=== PATIENT | female | born 1985 | race Caucasian/White ===

== ENCOUNTER 2024-09-30 21:58 | Emergency (ER) | payer OTHER, SELFPAY ==
--- OUTSIDE RECORDS SUMMARY | 2023-04-22 09:30 | XMS_ITS ---
Author Organization [facility] vices Address [address] [place] [id number] Care Team Providers Care [place] Name Role Phone Theodora Keys Unavailable [phone] REASON FOR VISIT Comp. Exam Social History Sex Assigned At : Social History Observation Description Sex Assigned At Female Encounters Encounter Location Date Provider Diagnosis [facility] [address] [place], [place] [id number] 04/22/2023 Theodora Keys Plan Of Treatment No Information Progress Notes * Farida THAPA MDOB:1985 (39 yo F)Acc No.[id number]:04/22/2023 Patient: Lilian Farida PEREZ Provider: Adrian Keys DDS :1985 A ge:37 Y S ex:Female Date:04/22/2023 Address:[address] [place], [place] [id number] Subjective: * Chief Complaints: * 1 . Comp. Exam. * Medical History: Objective: * Vitals: Assessment: Plan: * Treatment: * Billing Information: * Visit Code: * Procedure Codes: * Electronic signature of Anastacio Keys DDS on 09/30/2024 at 10:06 PM EDT Sign off status: Pending * Provider: Adrian Keys DDS Date: 1 Generated for Printi ng/Faxing/eTransmitting on: 0 09/30/2024 10:06 PM EDT
--- OUTSIDE RECORDS SUMMARY | 2024-09-30 21:26 | XMS_ITS | Encounter Summary ---
Author Organization [employer] tem Address [facility] [place]-[id number] [address] [place] [address] Care Team Providers Care Relish Maker Name Role Phone Laura Pruitt Abdiel CARROLLN-OYSTER BED WORKER Primary Care Provider + Encounter Details Date Type Department Care Team (Late st Contact Info) Description 09/30/2024 9:26 PM EDT Emergency [facility] - Emergency [address] [place] [id number] Social History Tobacco Use Types Packs/Day Years Used Date Smoking Tobacco: Never Smokeless Tobacco: Never Alcohol Use Standard Drinks/Week Comments Yes 0 (1 standard drink = 0.6 oz pur e alcohol) occasionally PHQ-2 Answer Date Recorded Total Score 0 06/28/2024 Childcare Answer Date Recorded Childcare Unknown 10/04/2018 Employment Answer Date Recorded Employment Unknown 10/04/2018 Hunger Screening Answer Date Recorded Within the past 12 months we worried whether our food would run out before we got money to buy more. Never True 06/28/2024 Within the past 12 months th e food we bought just didn't last and we didn't have money to get more. Never True 06/28/2024 Purpose - Life Answer Date Recorded Purpose and direction in life Unknown Comments No Sex and Gender Information Value Date Recorded Sex Assigned at Not on file Legal Sex Female 11:33 AM EDT Gender Identity Not on file Sexual Orientation Not on file documented as of this encounter Plan of Treatment Not on file documented as of this encounter Visit Diagnoses Not on filedocumented in this encounter Additional Health Concerns Assessment Noted Time PHQ-9 Depression Total Score: 0 06/29/19 25 1:40 PM EST documented as of this encounter Care Teams Relish Maker Relationship Specialty Start Date End Date Laura Pruitt, MANAGER ADMINISTRATION-OYSTER BED WORKER [address] [place] [address] PCP - General Internal Medicine 03/10/24 documented as of this encounter
[2024-09-30 22:03] VITALS: BP 149/82; PULSE 82; TEMP 36.6; O2SAT 98; BMI 95.7
--- OUTSIDE RECORDS SUMMARY | 2024-09-30 22:06 | XMS_ITS | Clinical Summary ---
Author Organization [facility] Address [address] [place] [address] Care Team Providers Care Mining Machinery Assembler Name Role Phone Pratik Gan DO Primary Care Provider [phone] Allergies Active Allergy Reactions Criticality Noted Date Comments Codeine 01/20/2013 Medications No known medications Social History Tobacco Use Types Packs/Day Years Used Date Smoking Tobacco: Never Alcohol Use Standard Drinks/Week Comments No 0 (1 standard drink = 0.6 oz pur e alcohol) Comments Unknown Sex and Gender Information Value Date Recorded Sex Assigned at Not on file Legal Sex Female 6:39 PM EST Gender Identity Not on file Sexual Orientation Not on file Last Filed Vital Signs Vital Sign Reading Time Taken Comments Blood Pressure 108/59 01/20/2013 9:23 PM EDT Pulse 99 01/20/2013 8:43 PM EDT Temperature 36.6 C (97.8 F) 01/20/2013 8:35 PM EDT Respiratory Rate 15 01/20/2013 8:35 PM EDT Oxygen Saturation 99% 01/20/2013 9:02 PM EDT Inhaled Oxygen Concentration - - Weight 83.9 kg (185 lb) 01/20/2013 8:35 PM EDT Height 160 cm (5' 3 ) 01/20/2013 8:35 PM EDT Body Mass Index 32.77 01/20/2013 8:35 PM EDT Plan of Treatment Not on file Care Teams Mining Machinery Assembler Relationship Specialty Start Date End Date Pratik Gan DO [address] [place], [place] [id number] PCP - General 01/20/13
--- OUTSIDE RECORDS SUMMARY | 2024-09-30 22:06 | XMS_ITS | Clinical Summary ---
Author Organization [facility] Address [address] [place] [address] Care Team Providers Care Rolling Mill Operator Helper Name Role Phone Unavailable Primary Care Provider Unavailabl e Allergies Active Allergy Reactions Criticality Noted Date Comments Codeine Unknown 02/03/2023 Social History Tobacco Use Types Packs/Day Years Used Date Smoking Tobacco: Never Assessed Comments Unknown Sex and Gender Information Value Date Recorded Sex Assigned at Not on file Legal Sex Female 6:43 PM EDT Gender Identity Not on file Sexual Orientation Not on file Last Filed Vital Signs Vital Sign Reading Time Taken Comments Blood Pressure 130/80 05/27/2022 12:00 PM EST Pulse - - Temperature - - Respiratory Rate - - Oxygen Saturation - - Inhaled Oxygen Concentration - - Weight 108 kg (237 lb) 05/27/2022 12:00 PM EST Height 160 cm (5' 3 ) 05/27/2022 12:00 PM EST Body Mass Index 41.98 05/27/2022 12:00 PM EST Plan of Treatment Not on file
--- OUTSIDE RECORDS SUMMARY | 2024-09-30 22:06 | XMS_ITS | Clinical Summary ---
Author Organization [employer] tem Address [facility]-[id number] [address] [place] [address] Care Team Providers Care Utility Aircrewman Name Role Phone Laura Pruitt Abdiel HIM CLERK-SECURITIES AND REAL ESTATE DIRECTOR Primary Care Provider + Allergies Active Allergy Reactions Criticality Noted Date Comments Codeine Rash Low 12/06/2018 Medications diclofenac sodium (VOLTAREN) 1 % gel Apply 2 g topically in the morning and 2 g at noon and 2 g in the evening and 2 g before bedtime. 100 g 4 Active Additional Information Patient not taking.Reported on 06/28/2024 ibuprofen (MOTRIN) 600 mg tablet Take 1 tablet (600 mg total) by mouth every 6 (six) hours as needed for pain. 30 tablet 4 Active acetaminophen (TYLENOL EXTRA STRENGTH) 500 mg tablet Take 1 tablet (500 mg total) by mouth every 6 (six) hours as needed for pain. 30 tablet 4 Active Active Problems Problem Noted Date Diagnosed Date Tension headache 11/12/2022 Anxiety 11/12/2022 Gastroesophageal reflux dise ase with esophagitis without hemorrhage 02/05/2022 Chronic erosive gastritis 02/05/2022 Bile reflux gastritis 02/05/2022 Duodenitis 02/05/2022 Recurrent biliary colic 01/28/2022 Overview (01/28/2022): Added automatically from request for surgery [id number] Chronic cholecystitis with calculus 01/28/2022 Overview (01/28/2022): Added automatically from request for surgery [id number] Epigastric pain 01/26/2022 Overview (01/26/2022): Added automatically from request for surgery [id number] RUQ pain 01/26/2022 Overview (01/26/2022): Added automatically from request for surgery [id number] Class 3 severe obesity due t o excess calories without serious comorbidity with body mass index (BMI) of 40.0 to 44.9 in adult 01/25/2022 Encounters Date Type Department Care Team Description 09/30/2024 9:26 PM EDT Emergency [facility] - Emergency [address] [place] [address] from Last 3 Months Immunizations Immunization Administration Dates Next Due MMR 08/21/1999 Family History Medical History Relation Name Comments Hypertension Father Diabetes Mother Leukemia Mother CML Relation Name Status Comments Father Alive Mother Alive Social History Tobacco Use Types Packs/Day Years Used Date Smoking Tobacco: Never Smokeless Tobacco: Never Tobacco Cessation:Counseling Given: Not Answered Alcohol Use Standard Drinks/Week Comments Yes 0 [...] Sign Reading Time Taken Comments Blood Pressure 110/76 06/28/2024 1:41 PM EST Pulse 87 06/28/2024 1:41 PM EST Temperature 36.8 C (98.2 F) 06/28/2024 1:41 PM EST Respiratory Rate 18 06/28/2024 1:41 PM EST Oxygen Saturation 99% 06/28/2024 1:41 PM EST Inhaled Oxygen Concentration - - Weight 116.1 kg (256 lb) 06/28/2024 1:41 PM EST Height 160 cm (5' 3 ) 06/28/2024 1:41 PM EST Body Mass Index 45.35 06/28/2024 1:41 PM EST Plan of Treatment Health Maintenance Due Date Last Done Comments Adult BMI Follow Up Plan 2004 Adult BMI Screening 06/28/2025 06/28/2024 DTaP,Tdap and Td Vaccines (1 - Tdap) 06/28/2025 Postponed from 05/11 (Patient Refused) Depression Screening 06/28/2025 06/28/2024 Tobacco Screening 06/28/2025 06/28/2024 Influenza Vaccine Discontinued Medical Devices Not on file Insurance [place] [employer] Care Teams Utility Aircrewman Relationship Specialty Start Date End Date Laura Pruitt APRN-SAIGE [address] [place] [address] PCP - General Internal Medicine 03/10/24
--- OUTSIDE RECORDS SUMMARY | 2024-09-30 22:06 | XMS_ITS | Encounter Summary ---
Author Organization [facility] tem Address [facility]-[id number] [address] [place] [address] Care Team Providers Care Child Care Attendant School Name Role Phone Laura Pruitt APRN-DESIGNER WRITER Primary Care Provider + Encounter Details Date Type Department Care Team (Late st Contact Info) Description 11/09/2022 Telephone [facility] Physicians Internal Medicine - Family Medicine [address] [place] [address] Laura Pruitt APRNDESIGNER WRITER [address] [place] [address] Social History Tobacco Use Types Packs/Day Years Used Date Smoking Tobacco: Never Smokeless Tobacco: Never Alcohol Use Standard Drinks/Week Comments Yes 0 (1 standard drink = 0.6 oz pur e alcohol) occasionally PHQ-2 Answer Date Recorded Total Score 0 11/12/2022 Childcare Answer Date Recorded Childcare Unknown 10/04/2018 Employment Answer Date Recorded Employment Unknown 10/04/2018 Purpose - Life Answer Date Recorded Purpose and direction in life Unknown Comments No Sex and Gender Information Value Date Recorded Sex Assigned at Not on file Legal Sex Female 11:33 AM EDT Gender Identity Not on file Sexual Orientation Not on file documented as of this encounter Miscellaneous Notes * Telephone Encounter - Rebeca Baker - 11/09/2022 10:54 AM EDT Pt called her ins and all 3 weight loss medications are covered with a Prior Auth * Telephone Encounter - PATT Vegas - 11/09/2022 10:54 AM EDT Great! Looks like she has f/u on the to discuss but she may move up to sooner if wishes. I candiscuss them in more detail and we can do injection teaching if needed. documented in this encounter Plan of Treatment Not on file documented as of this encounter Visit Diagnoses Not on filedocumented in this encounter Additional Health Concerns Infection Onset Date Last Indicated Resolved Time COVID-19 Rule-Out 08/14/2023 08/14/2023 08/14/2023 11:38 AM EDT Assessment Noted Time PHQ-9 Depression Total Score: 0 11/05/19 23 2:17 PM EDT documented as of this encounter Care Teams Child Care Attendant School Relationship Specialty Start Date End Date Laura Pruitt APRN-CNP [address] [place] [address] PCP - General Internal Medicine 03/10/24 documented as of this encounter
--- OUTSIDE RECORDS SUMMARY | 2024-09-30 22:06 | XMS_ITS | Encounter Summary ---
Author Organization [facility] tem Address [id number] [address] [place] [address] Care Team Providers Care Bowling Or Skating Front Desk Clerk Name Role Phone Laura Pruitt Abdiel CARROLLN-INTERNIST Primary Care Provider + Encounter Details Date Type Department Care Team (Late st Contact Info) Description [facility] [address] [place] [phone] Haylee Ureña CMA Social History Tobacco Use Types Packs/Day Years [...] encounter Miscellaneous Notes * Telephone Encounter - Haylee Ureña CMA - 11/16/2022 4:56 PM EDT Carol from [facility] called to let us know that patient declined services. She told them she was seeing someone in [place] for this and I am guessing it is you she is talking about. documented in this encounter Plan of Treatment Not on file documented as of this encounter Visit Diagnoses Not on filedocumented in this encounter Additional Health Concerns Infection Onset Date Last Indicated Resolved Time COVID-19 Rule-Out 08/14/2023 08/14/2023 08/14/2023 11:38 AM EDT Assessment Noted Time PHQ-9 Depression Total Score: 0 11/13/19 23 8:32 AM EDT documented as of this encounter Care Teams Bowling Or Skating Front Desk Clerk Relationship Specialty Start Date End Date Laura Pruitt, JANITOR CARETAKER-INTERNIST [address] [place] [address] PCP - General Internal Medicine 03/10/24 documented as of this encounter
--- OUTSIDE RECORDS SUMMARY | 2024-09-30 22:06 | XMS_ITS | Encounter Summary ---
Author Organization [facility] Address [id number] [address] [place] [address] Care Team Providers Care Director Radio Name Role Phone Laura Pruitt TREADLE CUT OFF SAW OPERATOR-JOB SPECIFICATION WRITER Primary Care Provider + Reason for Visit * Reason Comments Med Refill Encounter Details Date Type Department Care Team (Late st Contact Info) Description 06/02/2023 Refill [facility] Internal Medicine - Family Medicine [address] [place] [address] Laura Pruitt, TREADLE CUT OFF SAW OPERATORNEW [facility] [address] [facility] [address] [place] [address] Social History Tobacco Use Types Packs/Day Years Used Date Smoking Tobacco: Never Smokeless Tobacco: Never Alcohol Use Standard Drinks/Week Comments Yes 0 (1 standard drink = 0.6 oz pur e alcohol) occasionally PHQ-2 Answer Date Recorded Total Score 0 05/05/2023 Childcare Answer Date Recorded Childcare Unknown 10/04/2018 Employment Answer Date Recorded Employment Unknown 10/04/2018 Hunger Screening Answer Date Recorded Within the past 12 months we worried whether our food would run out before we got money to buy more. Never True 05/05/2023 Within the past 12 months th e food we bought just didn't last and we didn't have money to get more. Never True 05/05/2023 Purpose - Life Answer Date Recorded Purpose and direction in life Unknown Comments No Sex and Gender Information Value Date Recorded Sex Assigned at Not on file Legal Sex Female 11:33 AM EDT Gender Identity Not on file Sexual Orientation Not on file documented as of this encounter Miscellaneous Notes * Telephone Encounter - Ran rBay DO - 06/02/2023 10:43 AM EST This was discontinued documented in this encounter Plan of Treatment Not on file documented as of this encounter Visit Diagnoses Not on filedocumented in this encounter Additional Health Concerns Infection Onset Date Last Indicated Resolved Time COVID-19 Rule-Out 08/14/2023 08/14/2023 08/14/2023 11:38 AM EDT Assessment Noted Time PHQ-9 Depression Total Score: 0 05/05/19 9:12 AM EST documented as of this encounter Care Teams Director Radio Relationship Specialty Start Date End Date Laura Pruitt, TREADLE CUT OFF SAW OPERATOR-JOB SPECIFICATION WRITER [address] [facility] [address] [place] [address] PCP - General Internal Medicine 03/10/24 documented as of this encounter
--- OUTSIDE RECORDS SUMMARY | 2024-09-30 22:06 | XMS_ITS | Encounter Summary ---
Author Organization [facility] [employer] [facility] tem Address [id number] [address] [place] [address] Care Team Providers Care Maintainability Engineer Name Role Phone Laura Pruitt ANESTHETIC ASSISTANT-OPTIMIZATION MANAGER Primary Care Provider + Encounter Details Date Type Department Care Team (Late st Contact Info) Description 11/16/2022 Orders Only [facility] Internal Medicine - Family Medicine [address] [place] [address] Laura Pruitt [facility] [address] [facility] [place] [address] Social History Tobacco Use Types Packs/Day Years [...] documented as of this encounter Care Teams Maintainability Engineer Relationship Specialty Start Date End Date Laura Pruitt, ANESTHETIC ASSISTANT-OPTIMIZATION MANAGER [address] [place] [address] PCP - General Internal Medicine 03/10/24 documented as of this encounter
--- OUTSIDE RECORDS SUMMARY | 2024-09-30 22:06 | XMS_ITS | Encounter Summary ---
Author Organization [facility] Address [id number] [address] [place] [address] Care Team Providers Care Energy Control Officer Name Role Phone SonalLaura CONTRACT ATTORNEY-MILLINERY TEACHER Primary Care Provider + Encounter Details Date Type Department Care Team (Late st Contact Info) Description 03/23/2022 Telephone [facility] General Surgery [address] [facility] [address] [address] Nolvia Kelly Social History Tobacco Use Types Packs/Day Years Used Date Smoking Tobacco: Never Smokeless Tobacco: Never Alcohol Use Standard Drinks/Week Comments Yes 0 (1 standard drink = 0.6 oz pur e alcohol) occasionally PHQ-2 Answer Date Recorded Total Score 0 01/25/2022 Childcare Answer Date Recorded Childcare Unknown 10/04/2018 [...] encounter Miscellaneous Notes * Telephone Encounter - Nolvia Kelly - 03/23/2022 9:36 AM EST Patient called and states that she is due for an EGD. Can she just set that up or does she need to come in for an office visit? * Telephone Encounter - Jeane Wild MD - 03/23/2022 9:36 AM EST She was supposed to have a postop visit after her gallbladder surgery last month, and at that visitwe were going to talk about how she is doing. EGD likely to be planned for 3-6 mos from her last EGD in January. Please schedule her for an office visit with me for postop and GERD. Thanks. * Telephone Encounter - Nolvia Meadows Robin - 03/23/2022 9:36 AM EST LMOM for patient to call office and schedule an appointment. documented in this encounter Plan of Treatment Not on file documented as of this encounter Visit Diagnoses Not on filedocumented in this encounter Additional Health Concerns Infection Onset Date Last Indicated Resolved Time COVID-19 Rule-Out 08/14/2023 08/14/2023 08/14/2023 11:38 AM EDT Assessment Noted Time PHQ-9 Depression Total Score: 0 01/26/20 12:55 PM EDT documented as of this encounter Care Teams Energy Control Officer Relationship Specialty Start Date End Date Laura Pruitt, CONTRACT ATTORNEY-MILLINERY TEACHER [address] [place] [address] PCP - General Internal Medicine 03/10/24 documented as of this encounter
--- OUTSIDE RECORDS SUMMARY | 2024-09-30 22:06 | XMS_ITS | Encounter Summary ---
Author Organization [employer] [facility] tem Address [id number] [address] [place] [address] Care Team Providers Care Adult Protective Caseworker Name Role Phone Laura Pruitt EMU FARMER-SPECIAL EDUCATION CASE MANAGER Primary Care Provider + Encounter Details Date Type Department Care Team (Late st Contact Info) Description 02/24[facility]2023 [facility] [address] [place] [phone] Shayy Leiva MA Social History Tobacco Use Types Packs/Day Years Used Date Smoking Tobacco: Never Smokeless Tobacco: Never Alcohol Use Standard Drinks/Week Comments Yes 0 (1 standard drink = 0.6 oz pur e alcohol) occasionally PHQ-2 Answer Date Recorded Total Score 0 01/13/2023 Childcare Answer Date Recorded Childcare Unknown 10/04/2018 Employment Answer Date Recorded Employment Unknown 10/04/2018 Hunger Screening Answer Date Recorded Within the past 12 months we worried whether our food would run out before we got money to buy more. Never True 01/13/2023 Within the past 12 months th e food we bought just didn't last and we didn't have money to get more. Never True 01/13/2023 Purpose - Life Answer Date Recorded Purpose and direction in life Unknown Comments No Sex and Gender Information Value Date Recorded Sex Assigned at Not on file Legal Sex Female 11:33 AM EDT Gender Identity Not on file Sexual Orientation Not on file documented as of this encounter Miscellaneous Notes * Telephone Encounter - Shayy Leiva MA - 02/24/2023 3:50 PM EDT Pt called and said she needed to have repeat labs done, she will go to [place] for those, if you will put them in documented in this encounter Plan of Treatment Not on file documented as of this encounter Visit Diagnoses Not on filedocumented in this encounter Additional Health Concerns Infection Onset Date Last Indicated Resolved Time COVID-19 Rule-Out 08/14/2023 08/14/2023 08/14/2023 11:38 AM EDT Assessment Noted Time PHQ-9 Depression Total Score: 0 01/14/20 1:34 PM EDT documented as of this encounter Care Teams Adult Protective Caseworker Relationship Specialty Start Date End Date Laura Pruitt, EMU FARMER-SPECIAL EDUCATION CASE MANAGER [address] [place] [address] PCP - General Internal Medicine 03/10/24 documented as of this encounter
--- NOTE | 2024-09-30 22:19 | ED.EXTPRO1 ---
HPI - Extremity Problem General Chief complaint: Extremity Problem, Nontraumatic Stated complaint: Lower Pain Time Seen by Provider: 09/30/24 22:15 Source: patient Mode of arrival: walk-in Limitations: no limitations History of Present Illness HPI Narrative: presents complaining of right heel pain for the past month. Was seen by her PCP who was suppose to order an xray. xray not done. Continues to have pain with weight bearing. no injury. no fever or swelling Related Data Allergies Allergy/AdvReac Type Severity Reaction Status Date / Time codeine Allergy Rash Verified 09/30/24 22:10 Review of Systems ROS Status of ROS 10 or more systems reviewed and unremarkable except as noted in history and below PFSH PFSH Social History Little interest or pleasure in doing things: not at all Feeling down, depressed, or hopeless: not at all Exam Constitutional Vital Signs, click to edit/add: Last Vital Signs Temp 97.8 F 09/30/24 22:03 Pulse 82 09/30/24 22:03 Resp 22 H 09/30/24 22:03 BP 149/82 H 09/30/24 22:03 Pulse Ox 98 09/30/24 22:03 O2 Del Method Room Air 09/30/24 22:03 Common normals: no apparent distress, average body habitus, oriented x3, no limitations, healthy appearing, alert and well nourished [facility] Common normals: normocephalic and head/scalp atraumatic Eye Common normals: EOMs intact bilaterally and conjunctivae normal Respiratory Common normals: normal respiratory effort, no retractions, no use of accessory muscles and clear to auscultation bilaterally Cardio Common normals: regular rate, regular rhythm, S1 normal heart sound and S2 normal heart sound Extremity Other: right plantar heel tender. no swelling or palpable lesion. Remaining exam right foot unremarkable Course Vital Signs Vital signs: Vital Signs Temperature 97.8 F 09/30/24 22:03 Pulse Rate 82 09/30/24 22:03 Respiratory Rate 22 H 09/30/24 22:03 Blood Pressure 149/82 H 09/30/24 22:03 Pulse Oximetry 98 09/30/24 22:03 Oxygen Delivery Method Room Air 09/30/24 22:03 Temperature 97.8 F 09/30/24 22:03 Pulse Rate 82 09/30/24 22:03 Respiratory Rate 22 H 09/30/24 22:03 Blood Pressure 149/82 H 09/30/24 22:03 Pulse Oximetry 98 09/30/24 22:03 Oxygen Delivery Method Room Air 09/30/24 22:03 MDM - Extremity (Nontraumatic) MDM Narrative Medical decision making narrative: patient presents with plantar heel pain with weight bearing over the past month. No injury. Focal tenderness on exam . Xray with findings of heel spur. Patient informed of the finding and discharged home to follow up with Podiatry Discharge Plan Discharge Chief Complaint: Extremity Problem, Nontraumatic Clinical Impression: Heel spur Patient Disposition: Home, Self-Care Print Language: Kyrgyz Instructions: Heel Spur (ED) Additional Instructions: follow up with Podiatry and continue motrin for now Referrals: SHIRA BANGURA [Primary Care Provider, Unknown] - 1 week
== END 2024-09-30 23:42 | disposition home or self-care (01) ==
PROVIDERS: Emergency Provider Internal Medicine; PCP Nurse Practitioner Family
DX: M77.31 Calcaneal spur, right foot (principal)
CPT/HCPCS: 73630; 99283

== ENCOUNTER 2025-03-08 10:13 | Outpatient (OUT) | payer OTHER, SELFPAY ==
--- NOTE | 2025-03-08 09:24 | XR_ITS ---
The [address] [address] Patient Name: SURJIT SALCEDO MRN: [id number] date: 1985 Sex: F Assigned Patient Location: [facility] Current Patient Location: [facility] Accession/Order Number: [id number] Exam Date: 03/08/2025 09:40 Report Date: 03/08/2025 10:44 At the request of: DON CHENEY DPLaurent Procedure: XR foot RT min 3V RIGHT FOOT - 3 views COMPARISON: 09/30/2024 CLINICAL DATA: Heel pain for the past few months Weightbearing AP, lateral and oblique views were obtained. There is no evidence of fracture or dislocation. Posterior and plantar calcaneal spurs are again visualized. There are no significant soft tissue abnormalities. XR/XR foot RT min 3V IMPRESSION: CALCANEAL SPURS. NO ACUTE BONY FINDINGS. Impression dictated by: Aide Otoole M.D. 03/08/2025 10:44 AM Dictation Location: [place] [address] Electronically authenticated by: [id number] Y Date: 03/08/2025 10:44
--- OUTSIDE RECORDS SUMMARY | 2025-03-08 10:15 | XMS_ITS | Clinical Summary ---
Author Organization [facility] Address [address] [place] [address] Care Team Providers Care Activity Therapy Specialist Name Role Phone Unavailable Primary Care Provider Unavailabl e Allergies Active AllergyReactionsCriticalityNoted HhhjFjwefvfkQplyyfhZwooxey38/12/2023 Social History Tobacco UseTypesPacks/DayYears UsedDateSmoking Tobacco: Never Assessed CommentsUnknownSex and Gender InformationValueDate RecordedSex Assigned at Not on fileLegal CtrLxcwld91/15/2023 6:43 PM EDTGender IdentityNot on fileSexual OrientationNot on file Last Filed Vital Signs Vital SignReadingTime TakenCommentsBlood Fpffvycn377/80005/27/2022 12:00 PM EST Pulse--Temperature--Respiratory Rate--Oxygen Saturation--Inhaled Oxygen Concentration--Wcfgmt818 kg (237 lb)05/27/2022 12:00 PM UVMMxqjuw316 cm (5' 3 ) 05/27/2022 12:00 PM ESTBody Mass Index41.98005/27/2022 12:00 PM EST Plan of Treatment DateTypeDepartmentCare Team (Latest Contact Info)Vnuuuclvyte45/09/2025 1:00 PM ESTProcedure Visit [facility] [address] [address] Katie Dyer PA [address] [place] [address] Insurance
--- OUTSIDE RECORDS SUMMARY | 2025-03-08 10:15 | XMS_ITS | Clinical Summary ---
Author Organization [employer] Address [id number] [address] [place] [address] Care Team Providers Care Senior Microsoft Consultant Name Role Phone Sonal, Laura Meadows APRN-DOOR WORKER Primary Care Provider + Allergies Active AllergyReactionsCriticalityNoted DgvfPaaanjccIuoykwaLzkjFfm33/14/2019 Medications MedicationSigDispense QuantityRefillsLast FilledStart DateEnd DateStatus ibuprofen (MOTRIN) 600 mg tablet Take 1 tablet (600 mg total) by mouth every 6 (six) hours as needed for pain. 30 tablet 04/21/2024ctive acetaminophen (TYLENOL EXTRA STRENGTH) 500 mg tablet Take 1 tablet (500 mg total) by mouth every 6 (six) hours as needed for pain. 30 tablet 04/21/2024ctive diclofenac sodium (VOLTAREN) 1 % gel Apply 2 g topically in the morning and 2 g at noon and 2 g in the evening and 2 g before bedtime. 100 g Discontinued(Therapy completed) Active Problems ProblemNoted DateDiagnosed DateTension mfjkiltr64/21/0418Qnkbnox44/21/2023 Gastroesophageal reflux disease with esophagitis without uhhdkvfvfp36/14/2022 Chronic erosive dhmboeeho22/14/2022ile reflux lzyftyloz10/14/2022uodenitis 02/05/2022ecurrent biliary colic1 Overview (01/28/2022): Added automatically from request for surgery [id number] Chronic cholecystitis with dfqkiqfb78/06/2022 Overview (01/28/2022): Added automatically from request for surgery [id number] Epigastric pain01/26/2022 Overview (01/26/2022): Added automatically from request for surgery [id number] RUQ pain01/26/2022 Overview (01/26/2022): Added automatically from request for surgery [id number] Class 3 severe obesity due to excess calories without serious comorbidity with body mass index (BMI) of 40.0 to 44.9 in adult01/25/2022 Encounters DateTypeDepartmentCare ByfeXyijkxmbebw46/30/2025 9:00 AM EDTOffice Visit [facility] [address] [facility] [place] [address] Laura Pruitt, STERILIZATION TECHNICIAN-DOOR WORKER Chronic foot pain, right (Primary Dx); Class 3 severe obesity due to excess calories without serious comorbidity with body mass index (BMI) of 40.0 to 44.9 in adult ([facility])02/21/2025Travelfrom Last 3 Months Immunizations ImmunizationAdministration DatesNext WogPAQ8108/21/1999 Family History Medical HistoryRelationNameCommentsHypertensionFatherDiabetesMotherLeukemia MotherCMLRelationNameStatusCommentsFatherAliveMotherAlive Social History Tobacco UseTypesPacks/DayYears UsedDateSmoking Tobacco: NeverSmokeless Tobacco: Never Tobacco Cessation:Counseling Given: Not Answered Alcohol UseStandard Drinks/WeekCommentsYes0 (1 standard drink = 0.6 oz pure alcohol)occasionallyPHQ-2AnswerDate RecordedTotal Zahlh8555Childcare AnswerDate FsoaytlzOitfmmfitCynmiaj42/12/2019EmploymentAnswerDate Recorded JvhkvtwlacHanfllz40/12/2019Hunger ScreeningAnswerDate RecordedWithin the past 12 months we worried whether our food would run out before we got money to buy more.Never True02/21/2025Within the past 12 months the food we bought just didn't last and we didn't have money to get more.Never True02/21/2025Purpose - LifeAnswerDate RecordedPurpose and direction in pariStufdqp68/11/2021 CommentsNoSex and Gender InformationValueDate RecordedSex Assigned at BirthNot on fileLegal PydJystwr39/06/2015 11:33 AM EDTGender IdentityNot on fileSexual OrientationNot on file Last Filed Vital Signs Vital SignReadingTime TakenCommentsBlood Ymmlmtbl191/7402/21/2025 8:59 AM EDT Smeej166102/21/2025 8:59 AM TPKRhakjzhtkuu06.3 ??C (97.4 ??F)02/21/2025 8:59 AM EDTRespiratory Kmya1493 8:59 AM EDTOxygen Grljpfifkk272%02/21/2025 8:59 AM EDTInhaled Oxygen Concentration--Txknau515.9 kg (251 lb 3.2 oz)02/21/2025 8:59 AM QECKftnbw691 cm (5' 2.99 )02/21/2025 8:59 AM EDTBody Mass Index44.51 02/21/2025 8:59 AM EDT Plan of Treatment DateTypeDepartmentCare Team (Latest Contact Info)Lulkkmasnbn20/12/2026 9:20 AM EDTOffice Visit [facility] [address] [place] [address] Laura Pruitt, STERILIZATION TECHNICIAN-DOOR WORKER [address] [place] [address] Health MaintenanceDue DateLast DoneCommentsDTaP,Tdap and Td Vaccines (1 - Tdap) 06/28/2025Postponed from 2005 (Patient Refused)Depression Screening dult BMI Follow Up P[place] BMI Xxlzkjrbe52Tobacco Snxwszzik75Influenza VaccineDiscontinued Medical Devices Not on file Insurance Care Teams Team MemberRelationshipSpecialtyStart DateEnd Date Laura Pruitt, STERILIZATION TECHNICIAN-DOOR WORKER [address] [place] [address] PCP - GeneralInternal Tvbqpmbi38/16/24
== END 2025-03-08 10:14 | disposition home or self-care (01) ==
LOC: RAD 10:13
PROVIDERS: Visit Provider Podiatrist Foot & Ankle Surgery
DX: M79.671 Pain in right foot (principal); M77.31 Calcaneal spur, right foot
CPT/HCPCS: 73630